=== PATIENT | female | born 1990 | race Caucasian/White ===

== ENCOUNTER → 2018-03-26 | Outpatient (REF) | payer BC, OTHER ==
[2018-03-26 14:00] LABS: APPEARANCE, URINE HAZY (CLEAR); BACTERIA, URINE AUTO NEGATIVE (NEGATIVE); BILIRUBIN, URINE AUTO NEGATIVE (NEGATIVE); BLOOD, URINE BLOOD NEGATIVE (NEGATIVE); COLOR, URINE STRAW (YELLOW); GLUCOSE, URINE (UA) AUTO NEGATIVE (NEGATIVE); KETONE, URINE AUTO NEGATIVE (NEGATIVE); LEUKOCYTE ESTERASE, URINE AUTO NEGATIVE (NEGATIVE); NITRITE, URINE AUTO NEGATIVE (NEGATIVE); PROTEIN, URINE AUTO NEGATIVE (NEGATIVE); RBC, URINE AUTO 0 /HPF (0-3); SPECIFIC GRAVITY URINE AUTO 1.003 (1.002-1.035); SQUAMOUS EPITHELIAL CELL UR AU 2 /HPF (0-6); UROBILINOGEN, URINE AUTO 0.2 mg/dL (0.0-2.0); WBC, URINE AUTO 0 /HPF (0-3)
== END ==
LOC: M SMT 13:17
DX: N20.0 Calculus of kidney (principal)

== ENCOUNTER 2018-04-04 10:49 | Day surgery (SDC) | payer BC ==
[2018-04-04] MEDS: LR 1,000 ML IV (12:10)
[2018-04-04] MEDS ORDERED: ONDANSETRON 4MG/2ML VIAL (J2405) As Ordered ×2 (12:29→15:52)
[2018-04-04] MEDS: ONDANSETRON 4MG/2ML VIAL (J2405) IV (12:30)
[2018-04-04] MEDS ORDERED: dexameTHASONE 4 MG/ML 1ML VIAL (J1100) As Ordered (15:52)
[2018-04-04] MEDS ORDERED: fentaNYL 100 MCG/2 ML INJECTION (J3010) As Ordered (15:52)
[2018-04-04] MEDS ORDERED: LIDOCAINE 2% INJ 100 MG/5 ML SDV (FOR ANES.) As Ordered (15:52)
[2018-04-04] MEDS ORDERED: PROPOFOL 200 MG/20 ML VIAL As Ordered (15:52)
[2018-04-04] MEDS ORDERED: MIDAZOLAM INJ 2 MG/2 ML VIAL (J2250) As Ordered (15:53)
[2018-04-04] MEDS ORDERED: CONRAY-60 60% 50ML VIAL (Q9961) As Ordered (16:58)
[2018-04-04] MEDS ORDERED: traMADol 50 MG TAB As Ordered (17:33)
[2018-04-04] MEDS: traMADol 50 MG TAB PO (17:43)
[2018-04-04] MEDS ORDERED: traMADol 50 MG TAB PO (17:45)
[2018-04-04] MEDS ORDERED: LR 1,000 ML IV (17:45)
[2018-04-04] MEDS ORDERED: PERCOCET 5MG/325MG TAB PO (17:45)
[2018-04-04] MEDS ORDERED: ONDANSETRON 4MG/2ML VIAL (J2405) IV (17:45)
[2018-04-04] MEDS ORDERED: fentaNYL 100 MCG/2 ML INJECTION (J3010) IV (17:45)
== END 2018-04-04 18:25 | disposition home or self-care (01) ==
LOC: M SDC 10:49
DX: N20.2 Calculus of kidney with calculus of ureter (principal); K58.9 Irritable bowel syndrome, unspecified; K21.9 Gastro-esophageal reflux disease without esophagitis; R51 Headache; T88.59XD Other complications of anesthesia, subsequent encounter; Z88.4 Allergy status to anesthetic agent; Z79.899 Other long term (current) drug therapy; Z87.440 Personal history of urinary (tract) infections; Z98.51 Tubal ligation status
CPT/HCPCS: 52356

== ENCOUNTER → 2019-06-19 | Outpatient (REF) | payer BC ==
[~2019-06-19] MED LIST: BCP PO; FLOM0.4C39 PO; HYCOSAMINE; HYOS0.1258 PO; NEXI20CA PO
== END ==
LOC: M LAB LCGH 12:27
PROVIDERS: ATTEND Surgery
DX: D23.72 Other benign neoplasm of skin of left lower limb, including hip (principal); D23.30 Other benign neoplasm of skin of unspecified part of face; D23.0 Other benign neoplasm of skin of lip; D23.4 Other benign neoplasm of skin of scalp and neck; D23.5 Other benign neoplasm of skin of trunk; D23.21 Other benign neoplasm of skin of right ear and external auricular canal

== ENCOUNTER → 2020-04-22 | Outpatient (REF) | payer BC ==
[2020-04-22 13:43] LABS: ALBUMIN 4.4 GM/DL (3.2-5.2); ALT/SGPT 17 U/L (12-78); BILIRUBIN,TOTAL 0.5 MG/DL (0.2-1.0); BLOOD UREA NITROGEN 11 MG/DL (7-18); CALCIUM LEVEL 8.9 MG/DL (8.5-10.1); CARBON DIOXIDE LEVEL 24 MEQ/L (21-32); CHLORIDE LEVEL 108 MEQ/L (98-107); COMPLEMENT C3 95 MG/DL (90-180); COMPLEMENT C4 17 MG/DL (10-40); CREATININE FOR GFR 0.69 MG/DL (0.55-1.30); FREE T4 0.93 NG/DL (0.76-1.46); GLOMERULAR FILTRATION RATE > 60.0 (>60); GLUCOSE, FASTING 90 MG/DL (70-100); POTASSIUM SERUM 4.1 MEQ/L (3.5-5.1); SODIUM LEVEL 139 MEQ/L (136-145); THYROID PEROXIDASE ANTIBODY 42.8 U/ML (<60.0); TOTAL 25(OH) VITAMIN D 14.7 NG/ML (30.0-100.0); TOTAL PROTEIN 7.2 GM/DL (6.4-8.2)
[2020-04-26 14:07] LABS: ANTI DS-DNA AB Negative (Negative); RNP ANTIBODY < 0.2 AI (0.0-0.9); SMITHS ANTIBODY < 0.2 AI (0.0-0.9); SSA SJOGRENS A <0.2 AI (0.0-0.9); SSB SJOGRENS B <0.2 AI (0.0-0.9)
== END ==
LOC: M SFHCRHEU 11:01
PROVIDERS: ATTEND Internal Medicine
DX: R76.8 Other specified abnormal immunological findings in serum (principal); R53.82 Chronic fatigue, unspecified

== ENCOUNTER → 2020-09-20 | Outpatient (CLI) | payer BC, OTHER ==
[~2020-09-20] MED LIST changes: +ISOVUE-370 76% 100ML VIAL As Ordered ONE
--- NOTE | 2020-09-20 16:59 | REP ---
INDICATION: LOCALIZED SWELLING, MASS , LUMP NECK. COMPARISON: None. TECHNIQUE: Axial CT images with multiplanar reformations with contrast. FINDINGS: A marker is seen on the left, immediately beneath the mandible. Adjacent the marker, no definite mass lesion is seen. No other lymphadenopathy identified. Paranasal sinuses and mastoid air cells are clear. There is a soft tissue fullness at the lower nasopharyngeal area, appears to be immediately above the tongue base. This remains ill-defined on CT imaging, may represent faucial or tonsillar adenopathy. IMPRESSION: No discrete mass lesion or cervical lymphadenopathy. No definite abscess. Soft tissue fullness best seen on the sagittal images at midline, low nasopharynx, as described. Clinical correlation suggested. Direct visualization may be informative. <Electronically signed by Omi Figueroa > 09/20/20 [id number]
== END ==
LOC: M RAD 15:56
PROVIDERS: ATTEND Otolaryngology
DX: R22.1 Localized swelling, mass and lump, neck (principal)
CPT/HCPCS: 70491; Q9967

== ENCOUNTER → 2020-11-20 | Outpatient (CLI) | payer OTHER ==
[~2020-11-20] MED LIST changes: +BENA25CA4 PO; -ISOVUE-370 76% 100ML VIAL As Ordered ONE
== END ==
LOC: M LABSMTC 11:06
PROVIDERS: ATTEND Anesthesiology
DX: Z01.812 Encounter for preprocedural laboratory examination (principal); Z20.822 Contact with and (suspected) exposure to COVID-19

== ENCOUNTER 2020-11-25 08:30 | Day surgery (SDC) | payer OTHER ==
[~2020-11-25] VITALS: Ht 160 cm; Wt 57.2 kg
[~2020-11-25 08:30] MED LIST changes: +LR 1,000 ML IV ONE; +dexameTHASONE 4 MG/ML 1ML VIAL (J1100 PER 1MG) IV ONE
[2020-11-25] MEDS ORDERED: fentaNYL 100 MCG/2 ML INJECTION (J3010) As Ordered ONE ×3 (09:13→12:07)
[2020-11-25] MEDS ORDERED: ROCURONIUM BROMIDE 50 MG/5 ML VIAL As Ordered ONE (09:14)
[2020-11-25] MEDS ORDERED: ONDANSETRON 4MG/2ML VIAL As Ordered ONE ×2 (09:14→11:57)
[2020-11-25] MEDS ORDERED: MIDAZOLAM INJ 2MG/2ML VIAL (J2250 PER 1MG) As Ordered ONE (09:14)
[2020-11-25] MEDS ORDERED: dexameTHASONE 4 MG/ML 1ML VIAL (J1100 PER 1MG) As Ordered ONE (09:14)
[2020-11-25] MEDS ORDERED: propofoL 200 MG/20 ML VIAL As Ordered ONE (09:14)
[2020-11-25] MEDS ORDERED: EPINEPHrine 1MG/ML INJ 30ML MD-VIAL As Ordered ONE (09:48)
[2020-11-25] MEDS ORDERED: METHYLENE BLUE 0.5% (5MG/ML) 10 ML AMP (PROVAYBLUE) As Ordered ONE (09:49)
[2020-11-25] MEDS ORDERED: ACETAMINOPHEN 1000MG 100ML IV BTL (OFIRMEV) (J0131 PER 10MG) As Ordered ONE (09:55)
[2020-11-25] MEDS ORDERED: SUGAMMADEX SODIUM 500 MG/5 ML VIAL (BRIDION) As Ordered ONE (10:36)
[2020-11-25] MEDS ORDERED: ESMOLOL INJ 100MG/10ML VIAL As Ordered ONE (10:38)
[2020-11-25] MEDS ORDERED: METOCLOPRAMIDE INJ 10MG/2ML VIAL (J2765 PER 1) As Ordered ONE (12:07)
[2020-11-25] MEDS: fentaNYL 100 MCG/2 ML INJECTION (J3010) IV PRN ×4 (12:08→12:24)
[2020-11-25] MEDS ORDERED: METOCLOPRAMIDE INJ 10MG/2ML VIAL (J2765 PER 1) IV PRN (12:15)
[2020-11-25] MEDS ORDERED: PERCOCET 5MG/325MG TAB PO PRN (12:15)
[2020-11-25] MEDS ORDERED: ONDANSETRON 4MG/2ML VIAL IV PRN (12:15)
[2020-11-25] MEDS ORDERED: LR 1,000 ML IV SCH ×2 (12:15→12:25)
[2020-11-25 13:47] VITALS: BP 119/74
--- NOTE | 2020-12-07 13:41 | RO ---
OPERATIVE NOTE DATE OF OPERATION: 11/25/2020 PREOPERATIVE DIAGNOSIS: Fullness of the left base of tongue and left nasopharynx. POSTOPERATIVE DIAGNOSIS: Fullness of the left base of tongue and left nasopharynx. PROCEDURES: 1. Nasal endoscopy. 2. Direct suspension microlaryngoscopy with biopsy of left base of tongue. SURGEON: Bro Jose MD [employer] MANAGER: ANESTHESIA: General. CLINICAL PREMABLE: This 30-year-old woman presented to the office complaining of fullness sensation in left neck. CT imaging study showed fullness in the left base of the tongue extending up toward the nasopharynx. Management options including surgery have been discussed; the patient understood and consented to the procedure. DESCRIPTION OF PROCEDURE: The patient was identified, brought to the operating room in stable condition. In the supine position on the operating table, the patient received general anesthesia via orotracheal intubation by anesthesia service. The patient was prepped and draped in usual aseptic manner. Both sides of the nasal cavity were decongested using pledgets soaked in 1:100,000 Epinephrine. Rigid nasal endoscope was introduced, evaluating both sides of the nasal cavity; no mucosal lesion was noted in both sides of the nasal cavity. The nasopharynx revealed normal appearing mucosa. The adenoid bed is free of asymmetry, ulceration or mass lesion. No identifiable area for biopsy was noted. At this time attention was turned to direct laryngoscopy with biopsy. The upper dentition was protected. The oral cavity, oropharynx, hypopharynx, lateral posterior pharyngeal were palpated and found to be free of distinct nodule. Using Dedo-Pilling laryngoscope the mucosa was inspected for the oral cavity, oropharynx, hypopharynx and larynx and no discrete mucosal lesion was noted. The Dedo-Pilling laryngoscope was suspended to allow visualization of the left base of tongue. Biopsies were obtained from the left base of tongue region. Hemostasis was achieved. At end of procedure sponge and instrument counts were correct. No complications. Estimated blood loss less than 5 mL. General anesthesia was reversed. The patient was extubated, awakened, and taken to recovery room in stable condition.
== END 2020-11-25 13:47 | disposition home or self-care (01) ==
LOC: M SDC 08:30
PROVIDERS: ATTEND Otolaryngology
DX: K14.8 Other diseases of tongue (principal); K21.9 Gastro-esophageal reflux disease without esophagitis; K58.9 Irritable bowel syndrome, unspecified; R51.9 Headache, unspecified; Z88.4 Allergy status to anesthetic agent; Z98.51 Tubal ligation status
CPT/HCPCS: 31535; 88305; J0131; J1100; J2250; J2405; J2765; J3010; Q9968

== ENCOUNTER → 2022-07-26 | Outpatient (CLI) | payer OTHER ==
[~2022-07-26] MED LIST changes: -LR 1,000 ML IV ONE; -dexameTHASONE 4 MG/ML 1ML VIAL (J1100 PER 1MG) IV ONE
[2022-07-26 10:42] LABS: BASO % 0.3 % (0.0-1.0); EOS # 0.1 10^3/uL (0.0-0.5); HEMATOCRIT 37.5 % (36.0-47.0); HEMOGLOBIN 13.1 g/dl (12.0-15.5); LYMPH # 1.3 10^3/uL (1.5-5.0); LYMPH % 19.5 % (24.0-44.0); MEAN CORPUSCULAR HEMOGLOBIN 30.6 pg (27.0-33.0); MEAN CORPUSCULAR HGB CONC 34.9 g/dl (32.0-36.5); MEAN CORPUSCULAR VOLUME 87.6 fl (80.0-96.0); MONO # 0.3 10^3/uL (0.0-0.8); MONO % 4.4 % (2.0-8.0); NEUTROPHILS # 5.1 10^3/uL (1.5-8.5); NEUTROPHILS % 74.4 % (36.0-66.0); PLATELET COUNT, AUTOMATED 320 10^3/uL (150-450); RED BLOOD COUNT 4.28 10^6/uL (4.00-5.40); WHITE BLOOD COUNT 6.8 10^3/uL (4.0-10.0)
[2022-07-26 12:50] LABS: FREE T4 1.2 NG/DL (0.89-1.76); THYROID STIMULATING HORMONE 1.07 uIU/ML (0.55-4.78)
[2022-07-27 11:08] LABS: TESTOSTERONE FREE (DIRECT) 0.5 pg/mL (0.0-4.2)
== END ==
LOC: M LAB 10:15
PROVIDERS: ATTEND Physician Assistant
DX: L65.9 Nonscarring hair loss, unspecified (principal)

== ENCOUNTER → 2022-11-20 | Outpatient (REF) | payer OTHER | LOC: M SFHCDERM 17:47 | PROVIDERS: ATTEND Physician Assistant | DX: D22.4 Melanocytic nevi of scalp and neck (principal) ==